=== PATIENT | female | born 1965 | race Caucasian/White ===

== ENCOUNTER 2017-06-01 08:05 | Outpatient (RCR) | payer BC | END 2017-08-26 13:35 | disposition home or self-care (01) | LOC: WSPT 08:05 | DX: M16.0 Bilateral primary osteoarthritis of hip (principal); E66.9 Obesity, unspecified; Z68.35 Body mass index [BMI] 35.0-35.9, adult ==

== ENCOUNTER 2018-12-05 10:00 | Outpatient (RCR) | payer BC | END 2018-12-05 11:48 | disposition home or self-care (01) | LOC: WSPT 10:00 | DX: M17.0 Bilateral primary osteoarthritis of knee (principal) ==

== ENCOUNTER 2021-11-29 16:15 | Emergency (ER) | payer BC ==
[~2021-11-29] VITALS: Ht 154.9 cm; Wt 120.5 kg
[~2021-11-29 16:15] MED LIST: CEFTIN500 MG PO; NORCO 325 MG-51 TAB PO
[2021-11-29 16:19] VITALS: TEMP 97.5
[2021-11-29 17:05] LABS: BASO # 0.1 K/mm3 (0.0-0.2); BASO % 0.4 % (0.0-2.0); EOS # 0.1 K/mm3 (0.0-0.7); GRAN # 8.5 K/mm3 (1.4-6.5); GRAN % 70.9 % (42.2-75.2); HEMATOCRIT 39.7 % (37.0-47.0); HEMOGLOBIN 12.7 g/dl (12.5-16.0); LYMPH # 2.4 K/mm3 (1.2-3.4); LYMPH % 20.2 % (20.0-51.0); MEAN CELL VOLUME 88 fl (80.0-100.0); MEAN CORPUSCULAR HEMOGLOBIN 28 pg (27-31); MEAN CORPUSCULAR HGB CONC 32 g/dl (33.0-37.0); MEAN PLATELET VOLUME 10.2 fl (7.4-10.4); MONO # 0.9 K/mm3 (0.1-0.6); MONO % 7.2 % (1.7-9.3); PLATELET COUNT 355 K/mm3 (130-400); RED BLOOD COUNT 4.51 M/mm3 (4.10-5.30); REDCELL DISTRIBUTION WIDTH-CV 14.4 % (11.5-14.5)
[2021-11-29 17:23] LABS: ALBUMIN 3.7 gm/dL (3.5-5.0); BILIRUBIN,TOTAL 0.4 mg/dL (0.2-1.2); CALCIUM 9.4 mg/dL (8.4-10.2); CREATININE, serum 1.27 mg/dL (0.57-1.11); POTASSIUM 3.7 mmol/L (3.5-4.5); TOTAL PROTEIN 7.5 gm/dL (6.2-8.1)
[2021-11-29 18:48] LABS: COLLECTION METHOD CLEAN CATCH
[2021-11-29 18:56] LABS: MUCOUS Present (NOT PRESENT); PH 5 (5-8); URINE APPEARANCE Hazy (CLEAR/HAZY); URINE BACTERIA Rare /hpf (NONE SEEN); URINE BILIRUBIN Negative (NEGATIVE); URINE BLOOD Negative (NEGATIVE); URINE GLUCOSE Negative (NEGATIVE); URINE KETONE Trace (NEGATIVE); URINE LEUKOCYTE ESTERASE 1+ (NEGATIVE); URINE NITRATE Positive (NEGATIVE); URINE PROTEIN(semi-quant) Negative (NEGATIVE); URINE UROBILINOGEN Negative (NEGATIVE)
[2021-11-29 18:57] LABS: URINE COLOR Yellow (YELLOW)
[2021-11-29] MEDS ORDERED: NORCO 325 MG-51 TAB PO ×2 (19:32→19:35)
[2021-11-29] MEDS ORDERED: BACTRIM DS 8001 TAB PO (19:43)
[2021-11-29 19:59] VITALS: BP 113/91; PULSE 63
== END 2021-11-29 20:00 | disposition home or self-care (01) ==
LOC: COL.ER 16:15
PROVIDERS: Nurse Practitioner Family
DX: S81.011A Laceration without foreign body, right knee, initial encounter (principal); S41.011A Laceration without foreign body of right shoulder, initial encounter; S13.9XXA Sprain of joints and ligaments of unspecified parts of neck, initial encounter; N39.0 Urinary tract infection, site not specified; V86.59XA Driver of other special all-terrain or other off-road motor vehicle injured in nontraffic accident, initial encounter; Y92.410 Unspecified street and highway as the place of occurrence of the external cause
CPT/HCPCS: J1885; J2270; J2405